=== PATIENT | male | born 1985 | race Caucasian/White ===

== ENCOUNTER 2017-11-13 21:45 | Emergency (ER) | payer OTHER, SELFPAY ==
[2017-11-13 21:46] VITALS: BP 145/91; PULSE 91; RESP 16; TEMP 36.8; O2SAT 98; BMI 25.7
--- NOTE | 2017-11-13 22:14 | ED.VISSUMM ---
- ER Visit Summary Date of Service: 11/13/17 Chief Complaint: Sunburn History of Present Illness: The patient is a 32 M who presents with pain secondary to sunburn. He sustained burn to the upper chest and his entire back. His the upper third of his back is blistered. There is no evidence infection. Patient reports itching after he applied Neosporin. He was informed of 9-10% of the population is allergic to Neosporin and would recommend not applying Neosporin ointment. Will treat with Benadryl, Naprosyn and will see 1 dose of [place] in the department. Physical Examination: Patient has sunburn with blistering upper third of his back bilaterally. The entire back is burnt as well as the upper chest. The remainder of exam is unremarkable Test Results: None Emergency Department Course and Treatment: Naprosyn, [place] and Benadryl Treatment Plan: Patient was informed take aspirin which is the medication of choice for sunburn for pain. Discontinue Neosporin. Disposition: Discharged home Impression: Sunburn chest and back with blistering upper back Allergic reaction to Neosporin ointment This note was generated with [employer] dictation software. It may contain incorrect words, spelling, and punctuation that were not noted in review of the chart prior to signing ED Disposition - Plan for ED Patient: Disposition: Home or Assisted Living Chief Complaint: Burn Instructions: ED Burn Sunburn Referrals: Care Physician,No Primary [Primary Care Provider] - Additional Instructions: Take Benadryl, 25 mg capsules, every 6 hours for the next 3 days. Do not apply Neosporin to your back or sun burned area. Taken aspirin tablet every 6-8 hours for pain
--- NOTE | 2017-11-13 22:18 | ED.DCSUM_ITS ---
- ER Visit Summary Date of Service: 11/13/17 Chief Complaint: Sunburn History of Present Illness: The patient is a 32 M who presents with pain secondary to sunburn. He sustained burn to the upper chest and his entire back. His the upper third of his back is blistered. There is no evidence infection. Patient reports itching after he applied Neosporin. He was informed of 9-10% of the population is allergic to Neosporin and would recommend not applying Neosporin ointment. Will treat with Benadryl, Naprosyn and will see 1 dose of [place] in the department. Physical Examination: Patient has sunburn with blistering upper third of his back bilaterally. The entire back is burnt as well as the upper chest. The remainder of exam is unremarkable Test Results: None Emergency Department Course and Treatment: Naprosyn, [place] and Benadryl Treatment Plan: Patient was informed take aspirin which is the medication of choice for sunburn for pain. Discontinue Neosporin. Disposition: Discharged home Impression: Sunburn chest and back with blistering upper back Allergic reaction to Neosporin ointment This note was generated with [employer] dictation software. It may contain incorrect words, spelling, and punctuation that were not noted in review of the chart prior to signing ED Disposition - Plan for ED Patient: Disposition: Home or Assisted Living Chief Complaint: Burn Instructions: ED Burn Sunburn Referrals: Care Physician,No Primary [Primary Care Provider] - Additional Instructions: Take Benadryl, 25 mg capsules, every 6 hours for the next 3 days. Do not apply Neosporin to your back or sun burned area. Taken aspirin tablet every 6-8 hours for pain
[2017-11-13] MEDS: HYDROcodone Bitartrate/Apap 5/325 Tablet PO (22:24)
[2017-11-13] MEDS: DiphenhydrAMINE 25 MG Capsule PO (22:25)
[2017-11-13] MEDS: Naproxen 250 MG Tablet 500 MG PO (22:25)
== END 2017-11-13 22:31 | disposition home or self-care (01) ==
LOC: ED 22:25
PROVIDERS: Emergency Provider Emergency Medicine
DX: L56.8 Other specified acute skin changes due to ultraviolet radiation (principal); T21.23XA Burn of second degree of upper back, initial encounter; X32.XXXA Exposure to sunlight, initial encounter; Y93.9 Activity, unspecified; Y92.9 Unspecified place or not applicable; T78.40XA Allergy, unspecified, initial encounter; T49.0X5A Adverse effect of local antifungal, anti-infective and anti-inflammatory drugs, initial encounter; Y99.9 Unspecified external cause status; Z79.82 Long term (current) use of aspirin
CPT/HCPCS: 99283

== ENCOUNTER 2017-12-04 20:46 | Emergency (ER) | payer OTHER, SELFPAY ==
[2017-12-04 20:47] VITALS: BP 131/90; PULSE 82; RESP 17; TEMP 36.8; O2SAT 98; BMI 25.0
--- NOTE | 2017-12-04 20:50 | RAD_ITS ---
STUDY: X-RAY - RIGHT ELBOW REASON FOR EXAM: Male, 32 years old. Pain. TECHNIQUE: 3 view(s) of the elbow. COMPARISON: None. FINDINGS: Normal visualized humerus, radius and ulna. Normal radiocapitellar and ulnotrochlear articulations. The soft tissue structures are unremarkable. There is no demonstrated fracture. RAD/Elbow min 3 Views IMPRESSION: Normal x-ray examination of the elbow. Electronically Signed: Evin Mcdaniel MD at 21:04 EDT , Service support ,
--- NOTE | 2017-12-04 21:19 | ED.VISSUMM ---
- ER Visit Summary Date of Service: 12/04/17 Chief Complaint: [Injury right elbow] History of Present Illness: The patient is a 32 M [presents the emergency department complaint of pain of the right elbow from an injury sustained 3 weeks ago. Patient states that he was sitting on the couch when his dog try to run out the door he grabbed the dog with his right hand by the collar and was pulled on the floor. Patient's had discomfort in the right elbow since that time. At times he feels like he has loss of strength in that arm. Patient denies any numbness or tingling.] Physical Examination: [HEENT-PERRLA, EOMI. Cranial nerves II through XII grossly intact. TMs clear. Mucous membranes moist. No adenopathy. Cardiovascular-regular rate and rhythm without murmur or ectopy Lungs-clear to auscultation, chest wall stable without crepitus or subcu emphysema Abdomen-normoactive bowel sounds, soft, nontender, no rebound or rigidity, no peritoneal signs. Extremities-intact ?4, normal range of motion, normal pulses, atraumatic]. Right elbow-patient has some mild tenderness over the lateral condyle of the distal humerus. He has normal range of motion. He is neurovascular intact. Normal strength. Test Results: [X-rays of the elbow were obtained and were normal.] Emergency Department Course and Treatment: [Patient advised use ibuprofen and will give orthopedic referral] Treatment Plan: [Follow-up with orthopedics in 3-5 days] Disposition: [Discharged home in stable condition] Impression: [Right elbow sprain] This note was generated with [employer] dictation software. It may contain incorrect words, spelling, and punctuation that were not noted in review of the chart prior to signing ED Disposition - Plan for ED Patient: Chief Complaint: Upper Extremity Injury Referrals: Care Physician,No Primary [Primary Care Provider] -
--- NOTE | 2017-12-04 21:21 | ED.DEP ---
ED Disposition - Plan for ED Patient: Chief Complaint: Upper Extremity Injury Instructions: ED Sprain Elbow Referrals: Care Physician,No Primary [Primary Care Provider] - Juan Yu DO [STAFF PHYSICIAN] -
== END 2017-12-04 21:42 | disposition home or self-care (01) ==
LOC: ED 21:30
PROVIDERS: Emergency Provider Emergency Medicine
DX: S53.401A Unspecified sprain of right elbow, initial encounter (principal); W08.XXXA Fall from other furniture, initial encounter; Y93.9 Activity, unspecified; Y92.9 Unspecified place or not applicable; Y99.9 Unspecified external cause status; Z79.82 Long term (current) use of aspirin
CPT/HCPCS: 73080; 99282

== ENCOUNTER → 2021-01-24 | Outpatient (CLI) | payer OTHER, SELFPAY | END | disposition home or self-care (01) | PROVIDERS: Referring Provider Physician Assistant; Visit Provider Physician Assistant | DX: Z11.52 Encounter for screening for COVID-19 (principal) | CPT/HCPCS: 87635; U0005; U0003 ==

== ENCOUNTER 2022-02-07 13:28 | Emergency (ER) | payer OTHER, SELFPAY ==
[2022-02-07 13:30] VITALS: BP 143/97; PULSE 83; RESP 15; TEMP 36.7; O2SAT 100; BMI 26.9
--- NOTE | 2022-02-07 14:54 | EX.ED.UPPERE ---
HPI History of Present Illness Chief Complaint: Upper Extremity Injury Detail of Chief Complaint: Left hand injury Informant: patient Onset/Context/Timing Onset: Today Current Severity: Moderate Maximum Severity: Moderate Narrative Narrative: Patient presents with injury to the left hand. He was helping to unload a truck at work. He took the safety off the lift gate and it came down striking him on the palm the left hand and crushing his hand between the gate and the rubber stopper at the dock. He is left-hand dominant. He has abrasions over the dorsal aspect of the left hand. He is unsure of his last tetanus update. [facility] Medical History no medical history no medical history Home Medications aspirin 81 mg chewable tablet 81 mg PO DAILY 11/13/17 [History Last Taken Unknown] Allergy/AdvReac Type Severity Reaction Status Date / Time amoxicillin [Amoxicillin] Allergy Unknown Verified 02/07/22 13:30 Social History Smoking Status: Never smoker ROS ROS ED Constitutional Constitutional ED: Denies chills or fever(s) Eyes Eyes: Denies change in vision or discharge from eye(s) ENT ENT ED: Denies discharge from eye(s), rhinorrhea or sore throat Cardiovascular Cardiovascular: Denies chest pain or palpitations Respiratory/Chest Respiratory/Chest: Denies cough or dyspnea Gastrointestinal Gastrointestinal: Denies abdominal pain, diarrhea, nausea or vomiting Musculoskeletal Musculoskeletal: Reports extremity pain; Denies back pain Integumentary Reports Abrasions; Denies rash Neurologic Neurologic: Denies headache(s) or weakness Psychiatric Psychiatric: Denies anxiety or depression Allergic/Immunologic Allergic/Immunologic ED: Denies lip swelling or urticaria EXAM Physical Exam Const Vital Signs: 02/07/22 13:30 Temperature 98.0 F Temperature Source Temporal Pulse Rate 83 Respiratory Rate 15 Blood Pressure 143/97 H Blood Pressure Mean 112 Pulse Ox 100 Oxygen Delivery Method Room Air Positive well nourished and well developed General Appearance ED: well developed HEENT Reports normocephalic and head/scalp atraumatic Eyes PERRL and EOMs intact bilaterally Neck supple Chest Wall inspection of chest normal and palpation of chest normal Resp normal respiratory effort and clear to auscultation bilaterally Cardio regular rate and regular rhythm GI Palpation: soft Extremity Extremity Narrative: Left hand edema with abrasions over the dorsal aspect of the hand. Able to wiggle fingers and has normal sensation and cap refill. No tenderness at the wrist or elbow. Neuro oriented x3 and no sensory deficits noted Sensorium / Orientation: alert Psych mental status grossly normal Skin Skin Narrative: Abrasions as noted above. MDM MDM MDM Narrative Medical decision making narrative: Left hand x-ray obtained. Tetanus update provided and patient given Naprosyn for pain. Treatment and Re-Evaluation Narrative: Left hand x-ray per my interpretation reveals no acute bony injury. Wound is cleansed and dressed. He will take [id number] pain medication. Discharge Plan Triage Chief Complaint: Upper Extremity Injury ED Provider: Marcelle Trammell Dx/Rx/DC Orders Clinical Impression: Crushing injury of hand, left, Abrasion Instructions: ED Abrasion, ED Crush Injury, Hand Prescriptions: No Action aspirin 81 MG Tab.Chew 81 mg PO DAILY Stand Alone Forms: Work Status Form Primary Care Provider: Care Physician,No Primary Referrals: Corporate,Care [Group of Physicians] - 5-7 Days Care Physician,No Primary [Primary Care Provider] - Disposition Disposition: Home, Self Care
[2022-02-07] MEDS: Naproxen 500 MG Tablet PO (15:02)
[2022-02-07] MEDS: Diphth,Pertuss(Acell),Tet Vac 0.5 ML Vial IM (15:02)
--- NOTE | 2022-02-07 15:10 | RAD_ITS ---
STUDY: X-RAY - LEFT HAND REASON FOR EXAM: Male, 37 years old. Abrasions following injury. TECHNIQUE: 3 view(s) of the hand. COMPARISON: Comparison is made with prior study 12/05/2013. FINDINGS: Normal radiocarpal articulation. Normal distal radioulnar joint. Normal visualized carpal bones. Normal carpal articulations Normal carpometacarpal articulation of the thumb. Normal second through fifth carpometacarpal joints. Normal metacarpi. Normal metacarpophalangeal joint of the thumb. Normal interphalangeal joint of the thumb. Normal proximal and distal phalanges of the thumb. Normal metacarpophalangeal joints of the second through fifth fingers. Normal proximal and distal interphalangeal joints of the second through fifth fingers. Normal phalanges of the second through fifth fingers. The soft tissue structures are unremarkable. RAD/Hand Min 3 Views IMPRESSION: Normal x-ray examination of the hand. Electronically Signed: Jamison Ortiz MD at 15:26 EDT ,
== END 2022-02-07 16:05 | disposition home or self-care (01) ==
PROVIDERS: Emergency Provider Emergency Medicine; Visit Provider Emergency Medicine
DX: S67.22XA Crushing injury of left hand, initial encounter (principal); S60.512A Abrasion of left hand, initial encounter; W23.0XXA Caught, crushed, jammed, or pinched between moving objects, initial encounter; Y99.0 Civilian activity done for income or pay; Z79.82 Long term (current) use of aspirin; Z23 Encounter for immunization
CPT/HCPCS: 73130; 90715; 99282

== ENCOUNTER 2023-05-31 14:22 | Emergency (ER) | payer OTHER, SELFPAY ==
[2023-05-31 14:23] VITALS: BP 140/99; PULSE 95; RESP 18; TEMP 36.6; O2SAT 99; BMI 27.4
--- NOTE | 2023-05-31 14:44 | ED.VIS.CHEST ---
HPI History of Present Illness Chief Complaint: Chest Pain Informant: patient Narrative Narrative: Patient presents with chest pain. This started Sunday morning. He states it was worse when it started but it is still present. He states it stayed there and is never gone away. It is in the midsternal area. Maybe a little bit to the right. It does radiate toward the right shoulder and arm. He states when it first happened he felt a little bit nauseated possibly. But he is not nauseated now and he never vomited. No diaphoresis. He states he does think he might be a little short of breath with it. He felt a little lightheaded when it first happened but not since. No coughing. No fevers. No recent travel surgery immobilization personal or family history of DVT or PE. Patient has never been a smoker. No high blood pressure diabetes. No family history of cardiovascular disease that is documented. He states his brother is a diabetic and may have had some heart problems but nobody has ever had stents or heart catheterization. Patient reports that he had a heart attack when he was 28 years old. He states what he remembers is walking back to his apartment. He evidently fell and put a dent in the wall. He was brought into the hospital because evidently he also had a suicide attempt at that same moment. He was transferred to [facility]. He had stress test that he was told were normal. I do not know what his blood work showed. He never had a heart catheterization. It sounds like he was on medicines for about a year although he does not recall the names of them. After that he has just been on baby aspirin every day which she still takes. [facility] Home Medications aspirin 81 mg chewable tablet 81 mg PO DAILY 11/13/17 [History Last Taken Unknown] Allergy/AdvReac Type Severity Reaction Status Date / Time amoxicillin [Amoxicillin] Allergy Unknown Verified 05/31/23 14:23 Social History Smoking Status: Never smoker ROS ROS ED ROS Narrative A complete review of systems was performed and is negative except as documented in the history of present illness. Some specific details below. Constitutional: No recent fevers or chills. He does not feel systemically ill. EYE: No discharge, visual complaints, or pain. ENT: No difficulty swallowing. No swelling. No pain. No notable reflux symptoms. CV: See history of present illness. Respiratory: See history of present illness. GI: No abdominal pain. No nausea vomiting diarrhea. No blood in stool. : No frequency dysuria or hematuria. Musculoskeletal: No recent trauma. No pains. No swelling. Skin: No rash. Nondiaphoretic. Neuro: No weakness or numbness. Endocrine: No polyuria or polydipsia. EXAM Physical Exam Narrative Exam Narrative: CONSTITUTIONAL: Patient is nontoxic in appearance. The patient looks comfortable. Work of breathing looks normal. HEENT: No notable trauma. Mucous membranes moist. Poor dentition but no acute infections. EYES: No conjunctival injection. No proptosis. No pallor. NECK:No JVD. No stridor. CARDIOVASCULAR: Regular rate. Regular rhythm. No notable murmur. No JVD. Tones are not muffled. Pulses are equal distally. RESPIRATORY: No respiratory distress. Breathing is unlabored. No wheezes. No rhonchi. No rales. No pain with a deep breath. No chest wall tenderness. No hypoxia. Saturations are normal at 99% on room air. GASTROINTESTINAL: Not distended. Bowel sounds are normal. No tenderness. No guarding. No rebound. No palpable mass. No bruit is heard. GENITOURINARY: No tenderness over the bladder. No CVA tenderness. MUSCULOSKELETAL: Atraumatic. No peripheral edema. No cord. No tenderness along the deep venous system. No asymmetry. No distended veins. NEUROLOGICAL: Patient is alert and appropriate. No focal deficit noted. SKIN: No noted rashes. No diaphoresis. PSYCHIATRIC: Patient is calm. Mood is appropriate. Const Vital Signs: 05/31/23 14:23 05/31/23 14:23 05/31/23 14:43 Temperature 98 F Temperature Source Temporal Pulse Rate 95 Respiratory Rate 18 Respiratory Effort Normal Non-Labored Blood Pressure 140/99 H Blood Pressure Mean 112 Pulse Ox 99 Oxygen Delivery Method Room Air Room Air 05/31/23 15:23 Temperature Temperature Source Pulse Rate Respiratory Rate 18 Respiratory Effort Blood Pressure Blood Pressure Mean Pulse Ox Oxygen Delivery Method Heart Score History: Slightly/Non-Suspicious ECG: Normal Age: </= 45 years Risk Factors: No Risk Factors Troponin: </= Normal Limit Score: 0 MDM MDM MDM Narrative Medical decision making narrative: My independent interpretation the patient's single view AP chest x-ray shows no acute process. Final reading is pending. Patient CBC is normal. Patient's basic metabolic panel is normal. Patient's first troponin is normal at 6. Repeat troponin is normal. Final reading of x-ray is normal. I think patient is appropriate for discharge. I cannot verify that this patient actually had an [place] at 28. He did not have a heart catheterization done. Even if counting his prior [place] he would only have a heart score of 2. And I doubt he actually had an [place]. Lab Data Attestation: I reviewed the patient's lab results. Labs: Laboratory Results - last 24 hr 05/31/23 05/31/23 14:37 16:50 WBC 8.0 RBC 5.40 Hgb 16.4 Hct 47.0 MCV 87.0 MCH 30.4 MCHC 34.9 RDW Std Deviation 38.6 RDW Coeff of Mario 12.1 Plt Count 314 MPV 10.5 Immature Gran % (Auto) 0.500 Neut % (Auto) 55.8 Lymph % (Auto) 28.6 Cooper % (Auto) 9.8 Eos % (Auto) 4.5 Baso % (Auto) 0.8 Absolute Neuts (auto) 4.5 Absolute Lymphs (auto) 2.28 Nucleated RBC % 0 Sodium 138 Potassium 3.6 Chloride 107 Carbon Dioxide 28.0 Anion Gap 3 L BUN 10 Creatinine 1.07 Estim Creat Clear Calc 103.75 Est GFR (MDRD) Af Amer 100 Est GFR (MDRD) Non-Af 83 BUN/Creatinine Ratio 9.3 L Glucose 111 H Calcium 9.4 Troponin I High Sens 6 7 Radiography Diagnostic Testing: Clinical Impression(s) from Imaging Studies Chest X-Ray 05/31/23 15:05 IMPRESSION: No radiographic evidence of acute cardiopulmonary disease. Electronically Signed: Isidoro Feliciano DO at 17:22 EST , EKG Initial EKG: Comments: My independent interpretation of the patient's EKG shows a normal sinus rhythm. Ventricular rate of 100. This was done when he was about to have an IV and drawn which made him very nervous. Patient he states he does not like needles. No ectopy. No ventricular ectopy. No acute ST elevation or depression. RI interval, QRS duration and QTc are normal. Discharge Plan Triage Chief Complaint: Chest Pain ED Provider: Eduardo Castillo Dx/Rx/DC Orders Clinical Impression: Chest pain Instructions: ED Chest Pain, Uncertain Cause Prescriptions: No Action aspirin 81 MG tablet,chewable 81 mg PO DAILY Primary Care Provider: Care Physician,No Primary Referrals: Shelby Gupta MD [Med Staff - Active Staff] - As soon as possible Care Physician,No Primary [Primary Care Provider] - Disposition Disposition: Home, Self Care
[2023-05-31 14:53] LABS: Absolute Lymphocyte Count 2.28 X10^3/uL (0.83-4.51); Absolute Neutrophil Count 4.5 X10^3/uL (2.0-7.7); Basophil# 0.06 X10^3/uL; Basophil% 0.8 % (0-1); Eosinophil# 0.36 X10^3/uL; Eosinophils% 4.5 % (0-5); Hemoglobin 16.4 g/dL (13.0-16.5); Lymphocyte # 2.28 X10^3/ul (0.83-4.51); Lymphocyte % 28.6 % (19-41); Mean Corp Hgb Conc 34.9 g/dL (32-36); Mean Corpuscular Hgb 30.4 pg (27.0-32.0); Mean Platelet Vol. 10.5 fl (6.2-12.0); Monocyte# 0.78 X10^3/uL; Monocyte% 9.8 % (0-10); NRBC Flagged by Analyzer 0 % (0-5); Neutrophil # 4.46 X10^3/uL (2.7-7.7); Neutrophil % 55.8 % (47-70); Platelet Count 314 K/mm3 (150-450); RBC Distribution Width CV 12.1 % (11.6-14.6); RBC Distribution Width SD 38.6 fl (35.1-43.9)
--- NOTE | 2023-05-31 15:05 | RAD_ITS ---
INDICATION: chest pain EXAMINATION/TECHNIQUE: X-RAY - XR Chest 1 View COMPARISON: FINDINGS: LINES/DEVICES: None. LUNGS: No consolidation, edema or effusion. No pneumothorax. MEDIASTINUM AND CARDIOVASCULAR STRUCTURES: Cardiac silhouette not enlarged. Central airways and mediastinal contour are unremarkable. BONES AND SOFT TISSUES: Unremarkable. RAD/Chest 1 View (Portable) IMPRESSION: No radiographic evidence of acute cardiopulmonary disease. Electronically Signed: Isidoro Feliciano DO at 17:22 EST ,
[2023-05-31 15:09] LABS: Anion Gap 3 (5-15); BUN 10 mg/dL (7-18); BUN/Creat Ratio 9.3 RATIO (10-20); Calcium,Total 9.4 mg/dL (8.5-10.1); Chloride 107 mmol/L (98-107); Creatinine, Serum 1.07 mg/dL (0.70-1.30); EST Glomerular Filtration Rate 83 mL/min (>60); Est Glom Filt Rate - Afr Amer 100 mL/min (>60); Estimated Creatinine Clearance 103.75 ml/min; Glucose 111 mg/dL (74-106); Potassium 3.6 mmol/L (3.5-5.1); Sodium Level 138 mmol/L (136-145); Troponin-I HS (w/2H Reflex) 6 pg/mL (3.0-78.0)
[2023-05-31 15:23] VITALS: RESP 18
[2023-05-31 16:00] VITALS: RESP 18
[2023-05-31 16:48] LABS: Reflex Troponin-HS? (from REC) Y
[2023-05-31 17:00] VITALS: RESP 18
[2023-05-31 17:14] LABS: Troponin-I HS 7 pg/mL (3.0-78.0)
[2023-05-31 18:00] VITALS: RESP 18
== END 2023-05-31 18:46 | disposition home or self-care (01) ==
PROVIDERS: Emergency Provider Emergency Medicine; Visit Provider Emergency Medicine
DX: R07.9 Chest pain, unspecified (principal); Z79.82 Long term (current) use of aspirin; Z87.891 Personal history of nicotine dependence
CPT/HCPCS: 71045; 80048; 84484; 85025; 93005; 99284; A4216

== ENCOUNTER → 2023-07-03 | Outpatient (CLI) | payer OTHER, SELFPAY ==
--- OUTSIDE RECORDS SUMMARY | 2023-07-03 08:43 | XMS RPT_ITS | CCD ---
Author Name Unknown Address [address] [place] [address] Organization [facility] Results Test Name Value Interpretation Reference Range Facil ity Summary Purpose Family History No Family History Records Found Advance Directives No Advanced Directives Records Found Additional Source Comments (unrecognized sect ion and content) No Status Records Found INFORMATION SOURCE (unrecogn ized section and content) FOR RECORDS PERTAINING TO PATIENTS WHO ARE OR HAVE BEEN ENROLLED IN A CHEMICAL DEPENDENCY/SUBSTANCEABUSE PROGRAM, SOME INFORMATION MAY BE OMITTED. This clinical summary was aggregated from multiple sources. Caution should be exercised in using it in the provision of clinical care. This summary normalizes information from multiple sources, and as a consequence, information in this document may materially change the coding, format and clinical context of patient data. In addition, data may be omitted in some cases. CLINICAL DECISIONS SHOULD BE BASED ON THE PRIMARY CLINICAL RECORDS. [employer] provides no warranty or guarantee of the accuracy or completeness of information in this document.
[2023-07-03 12:41] LABS: Erythrocyte Sedimentation Rate 5 mm/hr (0-20)
[2023-07-03 12:49] LABS: D-Dimer Quantitative (DVT/PE) 0.39 FEU/ug/m (0.27-0.49)
[2023-07-03 12:58] LABS: CRP < 2.90 mg/L (0.0-3.0); Cholesterol 157 mg/dL (200); High Density Lipoprotein 45 mg/dL; Triglycerides 181 mg/dL; Very Low Density Lipoprotein 36 mg/dL (5-40)
[2023-07-05 12:09] LABS: Anti-Centromere B Ab <0.2 AI (0.0-0.9); Anti-Chromatin <0.2 AI (0.0-0.9); Anti-Jo <0.2 AI (0.0-0.9); Anti-Nuclear Antibody Test Negative (.); Anti-Scleroderma-70 AB <0.2 AI (0.0-0.9); Anti-dsDNA Ab 4 IU/mL (0-9); RNP Ab <0.2 AI (0.0-0.9); SJOGREN'S Anti-SS-A test < 0.2 AI (0.0-0.9); SJOGREN'S Anti-SS-B test < 0.2 AI (0.0-0.9); Smith Ab <0.2 AI (0.0-0.9)
== END | disposition home or self-care (01) ==
LOC: BIMLAB 08:25
PROVIDERS: PCP Internal Medicine; Visit Provider Internal Medicine
DX: Z13.6 Encounter for screening for cardiovascular disorders (principal); R07.9 Chest pain, unspecified; Z83.3 Family history of diabetes mellitus
CPT/HCPCS: 36415; 80061; 83036; 85379; 85652; 86038; 86140; 86225; 86235

== ENCOUNTER → 2024-07-31 | Outpatient (CLI) | payer OTHER, SELFPAY ==
--- NOTE | 2024-07-31 09:49 | ECHOD_ITS ---
Reason For Study Reason For Study: Chest Pain Procedure This was a 2D Doppler, Color Flow transthoracic echocardiogram. Myocardial strain analysis was performed in this exam to aid in the assessment of cardiac function. Exam performed in department. Left Ventricle Normal left ventricle. The global longitudinal strain = -18.7 % (normal). The left ventricular ejection fraction is 55 %. No regional wall motion abnormalities noted. Right Ventricle Normal RV size. Normal systolic function. Atria Normal left atrium. Normal right atrium. Mitral Valve Normal mitral valve. Tricuspid Valve Normal tricuspid valve. Aortic Valve Trisinus/trileaflet aortic valve. Pulmonic Valve Normal pulmonic valve. Mild (1+) pulmonic valve insufficiency. Great Vessels Normal sized aortic root. The pulmonary artery is normal size. Inferior vena cava collapse with respiration. Pericardium/Pleural No pericardial effusion. MMode/2D Measurements & Calculations LVIDd: 4.9 cm IVSd: 0.96 cm Ao root diam: 2.8 cm LVIDs: 3.1 cm LVPWd: 0.95 cm RVDd: 3.8 cm FS: 36.9 % asc Aorta Diam: 2.8 cm LAV(MOD-bp): 39.8 ml LVAd ap4: 31.5 cm2 LAV(MOD-bp) Indexed: 18.3 ml/m2 LVLd ap4: 8.1 cm LAV(MOD-sp2): 42.8 ml EDV(MOD-sp4): 100.1 ml LAV(MOD-sp4): 36.7 ml EDV(sp4-el): 104.9 ml LVAs ap4: 19.5 cm2 LVLs ap4: 6.9 cm ESV(MOD-sp4): 44.2 ml ESV(sp4-el): 46.7 ml EF(MOD-sp4): 55.9 % EF(sp4-el): 55.5 % SV(MOD-sp4): 55.9 ml SV(sp4-el): 58.2 ml LA A4 area: 14.5 cm2 SI(MOD-sp4): 25.7 ml/m2 LA dimension(2D): 3.8 cm RA A4 area: 12.6 cm2 TAPSE: 1.7 cm Time Measurements MV dec time: 0.20 sec Doppler Measurements & Calculations MV E max marcelino: 73.9 cm/sec Lat Peak E' Marcelino: 14.5 cm/sec Med Peak E' Marcelino: 14.7 cm/sec MV A max marcelino: 60.1 cm/sec E/E' lat: 5.1 E/E' med: 5.0 MV E/A: 1.2 MV V2 max: 90.6 cm/sec MV P1/2t max marcelino: 90.6 cm/sec Ao V2 max: 101.1 cm/sec MV max P.3 mmHg MV P1/2t: 79.9 msec Ao max P.1 mmHg MV V2 mean: 50.9 cm/sec Ao V2 mean: 71.3 cm/sec MV mean P.2 mmHg MV dec slope: 332.2 cm/sec2 Ao mean P.4 mmHg MV V2 VTI: 26.5 cm MVA(P1/2t): 2.8 cm2 Ao V2 VTI: 21.6 cm AV (velocity ratio): 0.86 LV V1 max: 83.3 cm/sec MR max marcelino: 455.5 cm/sec PA V2 max: 111.8 cm/sec LV V1 max P.8 mmHg MR max P.0 mmHg LV V1 mean P.6 mmHg LV V1 mean: 59.8 cm/sec LV V1 VTI: 18.5 cm TR max marcelino: 203.9 cm/sec TR max P.6 mmHg ECHO/Echo Complete Interpretation Summary Normal left ventricle. The global longitudinal strain = -18.7 % (normal). The left ventricular ejection fraction is 55 %. Structurally normal valves. Ordering Physician: Skip Bernal Referring Physician: Skip Bernal Performed By: Sacha Whitney RCS
== END | disposition home or self-care (01) ==
PROVIDERS: PCP Internal Medicine; Referring Provider Internal Medicine Cardiovascular Disease; Visit Provider Internal Medicine Cardiovascular Disease
DX: R07.2 Precordial pain (principal)
CPT/HCPCS: 93306